=== PATIENT | female | born 1950 | race Caucasian/White ===

== ENCOUNTER 2017-10-09 18:02 | Emergency (ER) | payer MEDICARE, OTHER ==
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
== END 2017-10-09 19:39 | disposition home or self-care (01) ==
LOC: ER 18:02
DX: S00.12XA Contusion of left eyelid and periocular area, initial encounter (principal); S70.02XA Contusion of left hip, initial encounter; S80.11XA Contusion of right lower leg, initial encounter; V89.2XXA Person injured in unspecified motor-vehicle accident, traffic, initial encounter
CPT/HCPCS: 99283

== ENCOUNTER 2019-08-27 09:30 | Day surgery (SDC) | payer MEDICARE ==
[2019-08-27] MEDS ORDERED: PROPOFOL 10 MG/ML VIAL IV ONE (09:31)
[2019-08-27] MEDS ORDERED: LIDOCAINE 2% MDV (20MG/ML) 20ML VIAL IV ONE (09:31)
--- NOTE | 2019-08-28 07:40 | Operative Note ---
OPERATION: Surveillance COLONOSCOPY. PREOPERATIVE DIAGNOSIS: History of polyps. POSTOPERATIVE DIAGNOSES: 1. Colonic diverticulosis. 2. No polyps seen. PROCEDURE: After informed consent was obtained from the patient, she was placed in the left lateral decubitus position in the endoscopy suite, sedated and monitored by the department of anesthesia. Digital rectal examination was unremarkable. A well-lubricated [id number] colonoscope was inserted into the rectum and advanced to the cecum. Preparation quality was good to excellent. The cecum, cecal bulb, ileocecal valve, appendiceal orifice, ascending colon, transverse colon, descending colon, sigmoid colon, and rectum were free of inflammatory changes, mass lesions, or polyps. There were scattered diverticula throughout the ascending colon, transverse colon, descending and sigmoid colon. No inflammation was seen. The rectum was unremarkable in forward and J-turn views. The endoscope was straightened, the rectal ampulla deflated, and the endoscope was removed. RECOMMENDATIONS: I would suggest the patient follow a high-fiber diet. She should undergo repeat exam in 5 years. As always, thank you for allowing me to participate in the healthcare of your patients. TAO
== END 2019-08-27 10:45 | disposition home or self-care (01) ==
LOC: HOP 09:30
PROVIDERS: ATTEND Internal Medicine Gastroenterology
DX: Z09 Encounter for follow-up examination after completed treatment for conditions other than malignant neoplasm (principal); Z86.010 Personal history of colon polyps; K57.30 Diverticulosis of large intestine without perforation or abscess without bleeding; E03.9 Hypothyroidism, unspecified; M81.0 Age-related osteoporosis without current pathological fracture
CPT/HCPCS: 00812; G0105